=== PATIENT | male | born 1945 | race Two or more races ===

== ENCOUNTER → 2025-04-21 | Day surgery (SDC) | payer OTHER ==
[2025-04-13 09:10] LABS: URINE BILIRRUBIN NEGATIVE (NEGATIVE); URINE BLOOD NEGATIVE; URINE KETONE NEGATIVE (NEGATIVE); URINE LEUKOCYTE NEGATIVE; URINE NITRATE NEGATIVE; URINE PROTEIN 30 (NEGATIVE); URINE UROBILINOGEN 0.2 E.U./dl
[2025-04-13 09:16] VITALS: BP 200/70
[2025-04-13 09:16] LABS: URINE BACTERIA 24.4 uL (0.0-1933); URINE EPITHELIAL CELLS 2.6 uL (0.0-38.8); URINE RBC 2.7 uL (0.0-20.8); URINE WBC 1.8 uL (0.0-23.2)
[2025-04-13 09:17] LABS: BASO % 0.6 % (0.1-1.2); EOS # 0.32 (0.04-0.54); EOS % 3.2 % (0.7-7.0); HEMATOCRIT 45.4 % (40.1-51.0); HEMOGLOBIN 15.2 g/dL (13.7-17.5); LYMPH # 1.78 (1.18-3.74); LYMPH % 17.9 % (19.3-53.1); MEAN CORPUSCULAR HEMOGLOBIN 30.2 pg (25.6-32.2); MONO # 0.96 (0.24-0.82); MONO % 9.7 % (4.7-12.5); NEUT # 6.76 (1.56-6.13); PLATELET COUNT 211 K/uL (163-369); RED BLOOD COUNT 5.03 M/uL (4.63-6.08); RED CELL DISTRIBUTION WIDTH 13.7 % (11.6-14.4)
[2025-04-13 09:26] LABS: URINE APPEARANCE CLEAR; URINE CAST 0.14 uL (0.0-1.40); URINE COLOR YELLOW; URINE GLUCOSE >=1000 MG/DL (NEGATIVE)
[2025-04-13 09:34] LABS: INR 0.98; PROTHROMBIN TIME 10.7 SECONDS (9.0-11.5)
[2025-04-13 10:17] LABS: ALBUMIN 3.6 gm/dL (3.4-5.0); CALCIUM 9.4 mg/dL (8.5-10.1); CREATININE SERUM 1.62 mg/dL (0.70-1.30); GFR 41.52; PHOSPHOROUS 3.1 mg/dL (2.5-4.9); POTASSIUM 4.39 mEq/L (3.5-5.1)
[~2025-04-21] VITALS: Ht 165.1 cm; Wt 77.1 kg
[~2025-04-21] MED LIST: AZOR 10-40 MG1 EACH; CARDURA XL4 MG PO; CEFAZOLIN SODIUM 1,000 MG VIAL ONE; CEPHALEXIN500 MG PO; CIPROFLOX-DEXA7.5 ML OTIC; CLOPIDOGREL BIS75 MG PO; COZAAR100 MG PO; EPINEPHRINE HCL/PF 1 MG/ML AMPUL ONE; JANUVIA100 MG PO; LANTUS SOL100 UNIT/1; LIDOCAINE HCL 1%/EPINEPHRINE 20ML VIAL IJ ONE; METFORMIN HCL1000 M2 PO; POVIDONE-IODINE 118 ML BOTT TOP ONE; POVIDONE-IODINE SCRUB 118 ML BOTT TOP ONE; SIMVASTATIN5 MG; TOPROL XL200 MG PO; ZESTRIL20 MG PO; hydrALAZINE HCL 20 MG VIAL ONE
== END | disposition home or self-care (01) ==
LOC: ADM 04-13 07:00 → CIR.AMB 05:30
PROVIDERS: ATTEND Otolaryngology Otology & Neurotology
DX: H70.11 Chronic mastoiditis, right ear (principal); H90.A11 Conductive hearing loss, unilateral, right ear with restricted hearing on the contralateral side; H65.21 Chronic serous otitis media, right ear